=== PATIENT | male | born 1995 | race Caucasian/White ===

== ENCOUNTER 2019-01-23 11:01 | Emergency (ER) | payer BC ==
[~2019-01-23] VITALS: Ht 177.8 cm; Wt 136.1 kg
[~2019-01-23 11:01] MED LIST: ALBU90I INH; ALBU90OI INH; BUDE10.22 INH; Esgic Tablet1 EACH PO; Flonase 0.05% N16 GM; PRED20 PO; PROC10 PO; SERT50 PO; Sudogest30 MG PO
== END 2019-01-23 11:57 | disposition home or self-care (01) ==
LOC: ER 11:01
DX: M25.572 Pain in left ankle and joints of left foot (principal); Z79.899 Other long term (current) drug therapy; J45.909 Unspecified asthma, uncomplicated
CPT/HCPCS: 99283